=== PATIENT | female | born 1930 | race Caucasian/White ===

== ENCOUNTER 2020-02-25 10:03 | Inpatient (IN) ==
[2020-02-25] MEDS ORDERED: Fluticasone Propionate Nasal 50 MCG/SPRAY BOTTLE NS PRN (18:32)
[2020-02-25] MEDS ORDERED: Nitroglycerin 0.4 MG TAB.SUBL SL PRN (18:32)
[2020-02-25] MEDS: cephALEXin 500 MG CAPSULE PO SCH (20:29)
[2020-02-25] MEDS: rOPINIRole 0.25 MG TABLET PO SCH (20:29)
[2020-02-26 06:45] LABS: Basophils % 0.5 %; Eosinophils # 0.2 K/mcL (0.0-0.6); Hematocrit 30.7 % (35.3-44.9); Hemoglobin 9.4 g/dL (11.5-15.4); Immature Granulocytes % 0.8 % (0-4); Lymphocytes # 0.9 K/mcL (0.6-4.6); Lymphocytes % 12.7 %; Mean Corpuscular HGB Conc 30.6 g/dL (31.6-35.5); Mean Corpuscular Hemoglobin 24.3 pg (28.0-33.3); Mean Corpuscular Volume 79.3 fL (83.0-100.0); Mean Platelet Volume 9.4 fL (9.4-12.4); Monocytes # 0.7 K/mcL (0.0-1.3); Monocytes % 9.8 %; Neutrophils # 5.4 K/mcL (1.6-8.9); Platelet Count 206 K/mcL (140-400); Red Blood Count 3.87 M/mcL (3.82-4.97); Red Cell Distribution Width 25.4 % (11.5-14.5); Segmented Neutrophils % 74.2 %; White Blood Count 7.3 K/mcL (4.3-11.1)
[2020-02-26 07:03] LABS: BUN/Creatinine Ratio 15 (6-26); Blood Urea Nitrogen 10 mg/dL (8-23); Calcium 8.7 mg/dL (8.6-10.3); Carbon Dioxide 28 mEq/L (23-29); Chloride 101 mEq/L (98-107); Glucose 94 mg/dL (70-105); Osmolality,Calculated 281 (280-300); Potassium 3.9 mEq/L (3.5-5.1); Sodium 136 mEq/L (136-145); eGFR For African Americans > 60 (> 60); eGFR For Non-African Americans > 60 (> 60)
[2020-02-26 07:49] LABS: Anisocytosis 1+ (Not Present); Platelet Estimate Normal (Normal); Toxic Granulation Present (Not Present)
[2020-02-26] MEDS: cephALEXin 500 MG CAPSULE PO SCH ×2 (08:46→20:27)
[2020-02-26] MEDS: Aspirin Enteric Coated 81 MG Tablet PO SCH (08:47)
[2020-02-26] MEDS: Lactulose Oral Soln 20 GM/30 ML UDC PO PRN (08:54)
[2020-02-26] MEDS: rOPINIRole 0.25 MG TABLET PO SCH (20:27)
[2020-02-27] MEDS: Acetaminophen 325 MG TABLET PO PRN (01:24)
[2020-02-27] MEDS: Lactulose Oral Soln 20 GM/30 ML UDC PO PRN (08:19)
[2020-02-27] MEDS: cephALEXin 500 MG CAPSULE PO SCH ×2 (08:19→20:26)
[2020-02-27] MEDS: Aspirin Enteric Coated 81 MG Tablet PO SCH (08:19)
[2020-02-27] MEDS: rOPINIRole 0.25 MG TABLET PO SCH (20:27)
[2020-02-28] MEDS: Acetaminophen 325 MG TABLET PO PRN ×3 (00:20→21:05)
[2020-02-28] MEDS: cephALEXin 500 MG CAPSULE PO SCH ×2 (08:53→21:05)
[2020-02-28] MEDS: Aspirin Enteric Coated 81 MG Tablet PO SCH (08:54)
[2020-02-28] MEDS: rOPINIRole 0.25 MG TABLET PO SCH (21:06)
[2020-02-29] MEDS: Aspirin Enteric Coated 81 MG Tablet PO SCH (10:31)
[2020-02-29] MEDS: Acetaminophen 325 MG TABLET PO PRN (10:31)
[2020-02-29 14:59] LABS: Basophils % 0.3 %; Eosinophils # 0.1 K/mcL (0.0-0.6); Eosinophils % 1.3 %; Hematocrit 33.3 % (35.3-44.9); Hemoglobin 9.9 g/dL (11.5-15.4); Immature Granulocytes % 0.6 % (0-4); Lymphocytes # 0.8 K/mcL (0.6-4.6); Lymphocytes % 8.7 %; Mean Corpuscular HGB Conc 29.7 g/dL (31.6-35.5); Mean Corpuscular Hemoglobin 24.6 pg (28.0-33.3); Mean Corpuscular Volume 82.8 fL (83.0-100.0); Monocytes # 0.6 K/mcL (0.0-1.3); Monocytes % 6.8 %; Neutrophils # 7.2 K/mcL (1.6-8.9); Platelet Count 316 K/mcL (140-400); Red Blood Count 4.02 M/mcL (3.82-4.97); Red Cell Distribution Width 26.9 % (11.5-14.5); Segmented Neutrophils % 82.3 %; White Blood Count 8.7 K/mcL (4.3-11.1)
[2020-02-29 15:39] LABS: Anisocytosis 1+ (Not Present); Platelet Estimate Normal (Normal)
[2020-02-29] MEDS: Cefepime HCl 1,000 MG in 0.9 % Sodium Chloride Mini Bag 100 ML IVPB SCH (16:49)
[2020-02-29] MEDS: rOPINIRole 0.25 MG TABLET PO SCH (20:08)
[2020-03-01] MEDS: Cefepime HCl 1,000 MG in 0.9 % Sodium Chloride Mini Bag 100 ML IVPB SCH ×2 (04:15→16:59)
[2020-03-01] MEDS: Aspirin Enteric Coated 81 MG Tablet PO SCH (09:18)
[2020-03-01] MEDS: Acetaminophen 325 MG TABLET PO PRN (09:22)
[2020-03-01] MEDS: rOPINIRole 0.25 MG TABLET PO SCH (20:53)
[2020-03-02] MEDS: Cefepime HCl 1,000 MG in 0.9 % Sodium Chloride Mini Bag 100 ML IVPB SCH ×2 (03:13→14:31)
[2020-03-02] MEDS: Aspirin Enteric Coated 81 MG Tablet PO SCH (09:00)
[2020-03-02] MEDS ORDERED: Alendronate Sodium [Fosamax] 70 MG PO SCH (18:32)
[2020-03-02] MEDS: rOPINIRole 0.25 MG TABLET PO SCH (21:16)
[2020-03-03] MEDS: Cefepime HCl 1,000 MG in 0.9 % Sodium Chloride Mini Bag 100 ML IVPB SCH (02:28)
[2020-03-03] MEDS ORDERED: Bisacodyl 10 MG RECTAL SUPPOSITORY RC ONE (07:37)
[2020-03-03] MEDS: Lactulose Oral Soln 20 GM/30 ML UDC PO PRN ×2 (09:16→21:20)
[2020-03-03] MEDS: Aspirin Enteric Coated 81 MG Tablet PO SCH (09:16)
[2020-03-03] MEDS ORDERED: Ondansetron ODT 4 MG TAB.RAPDIS SL PRN (11:03)
[2020-03-03] MEDS ORDERED: 0.9 % Sodium Chloride 500 ML IV ONE (20:33)
[2020-03-03] MEDS ORDERED: 0.9 % Sodium Chloride 500 ML ONE (20:53)
[2020-03-03 20:58] LABS: Basophils # 0.1 K/mcL (0.0-0.2); Basophils % 0.5 %; Eosinophils # 0.1 K/mcL (0.0-0.6); Eosinophils % 1.3 %; Hematocrit 33.5 % (35.3-44.9); Hemoglobin 10.4 g/dL (11.5-15.4); Immature Granulocytes % 0.7 % (0-4); Lymphocytes # 1.1 K/mcL (0.6-4.6); Lymphocytes % 10.1 %; Mean Corpuscular Hemoglobin 25.4 pg (28.0-33.3); Mean Corpuscular Volume 81.7 fL (83.0-100.0); Mean Platelet Volume 8.2 fL (9.4-12.4); Monocytes # 0.9 K/mcL (0.0-1.3); Monocytes % 7.8 %; Neutrophils # 8.7 K/mcL (1.6-8.9); Platelet Count 422 K/mcL (140-400); Red Cell Distribution Width 26.2 % (11.5-14.5); Segmented Neutrophils % 79.6 %
[2020-03-03 21:10] LABS: Anisocytosis 3+ (Not Present); Hypochromasia Present (Not Present)
[2020-03-03 21:12] LABS: Platelet Estimate Increased (Normal); Poikilocytosis 1+ (Not Present)
[2020-03-03 21:13] LABS: Microcytosis Present (Not Present)
[2020-03-03] MEDS: rOPINIRole 0.25 MG TABLET PO SCH (21:14)
[2020-03-03] MEDS: Doxycycline 100 MG CAPSULE PO SCH (21:14)
[2020-03-03 21:16] LABS: Alanine Aminotransferase 30 Units/L (7-52); Albumin 3.3 g/dL (3.5-5.7); Albumin/Globulin Ratio 0.9 (1.1-2.2); Alkaline Phosphatase 57 Units/L (34-104); Aspartate Amino Transferase 31 Units/L (13-39); BUN/Creatinine Ratio 20 (6-26); Bilirubin,Total 0.3 mg/dL (0.3-1.0); Blood Urea Nitrogen 15 mg/dL (8-23); Calcium 9.1 mg/dL (8.6-10.3); Carbon Dioxide 25 mEq/L (23-29); Chloride 97 mEq/L (98-107); Globulin 3.8 g/dL (2.4-3.5); Glucose 110 mg/dL (70-105); Osmolality,Calculated 271 (280-300); Potassium 4.4 mEq/L (3.5-5.1); Sodium 130 mEq/L (136-145); Total Protein 7.1 g/dL (6.4-8.9); eGFR For African Americans > 60 (> 60); eGFR For Non-African Americans > 60 (> 60)
[2020-03-04] MEDS: Doxycycline 100 MG CAPSULE PO SCH ×2 (08:40→20:53)
[2020-03-04] MEDS: Aspirin Enteric Coated 81 MG Tablet PO SCH (08:41)
[2020-03-04] MEDS: Cefepime HCl 1,000 MG in 0.9 % Sodium Chloride Mini Bag 100 ML IVPB SCH (11:06)
[2020-03-04] MEDS: rOPINIRole 0.25 MG TABLET PO SCH (20:54)
[2020-03-05] MEDS: Lactulose Oral Soln 20 GM/30 ML UDC PO PRN ×2 (05:50→21:05)
[2020-03-05] MEDS: Doxycycline 100 MG CAPSULE PO SCH ×2 (08:35→21:04)
[2020-03-05] MEDS: Aspirin Enteric Coated 81 MG Tablet PO SCH (08:35)
[2020-03-05] MEDS: Acetaminophen 325 MG TABLET PO PRN (13:36)
[2020-03-05] MEDS: rOPINIRole 0.25 MG TABLET PO SCH (21:05)
[2020-03-06] MEDS: Aspirin Enteric Coated 81 MG Tablet PO SCH (09:26)
[2020-03-06] MEDS: Doxycycline 100 MG CAPSULE PO SCH (09:26)
[2020-03-06] MEDS: rOPINIRole 0.25 MG TABLET PO SCH (19:51)
[2020-03-07] MEDS: Lactulose Oral Soln 20 GM/30 ML UDC PO PRN ×2 (08:18→20:42)
[2020-03-07] MEDS: Aspirin Enteric Coated 81 MG Tablet PO SCH (08:20)
[2020-03-07] MEDS: rOPINIRole 0.25 MG TABLET PO SCH (20:42)
[2020-03-08] MEDS: Aspirin Enteric Coated 81 MG Tablet PO SCH (09:53)
[2020-03-08] MEDS: Lactulose Oral Soln 20 GM/30 ML UDC PO PRN (21:26)
[2020-03-08] MEDS: rOPINIRole 0.25 MG TABLET PO SCH (21:26)
[2020-03-09] MEDS: Lactulose Oral Soln 20 GM/30 ML UDC PO PRN (08:17)
[2020-03-09] MEDS: Aspirin Enteric Coated 81 MG Tablet PO SCH (08:17)
[2020-03-09] MEDS: rOPINIRole 0.25 MG TABLET PO SCH (20:24)
[2020-03-10] MEDS: Nystatin POWDER 30 GM BOTTLE TP SCH ×4 (01:12→21:07)
[2020-03-10] MEDS: Aspirin Enteric Coated 81 MG Tablet PO SCH (10:38)
[2020-03-10] MEDS: rOPINIRole 0.25 MG TABLET PO SCH (21:06)
[2020-03-11] MEDS: Aspirin Enteric Coated 81 MG Tablet PO SCH (08:57)
[2020-03-11] MEDS: Acetaminophen 325 MG TABLET PO PRN (08:57)
[2020-03-11] MEDS: Nystatin POWDER 30 GM BOTTLE TP SCH ×3 (09:04→20:27)
[2020-03-11] MEDS: rOPINIRole 0.25 MG TABLET PO SCH (20:27)
[2020-03-12 08:41] LABS: Basophils # 0.1 K/mcL (0.0-0.2); Basophils % 0.9 %; Eosinophils # 0.1 K/mcL (0.0-0.6); Eosinophils % 1.7 %; Immature Granulocytes % 1.3 % (0-4); Lymphocytes # 1.3 K/mcL (0.6-4.6); Lymphocytes % 15.5 %; Mean Corpuscular HGB Conc 31.3 g/dL (31.6-35.5); Mean Corpuscular Hemoglobin 25.9 pg (28.0-33.3); Mean Corpuscular Volume 82.9 fL (83.0-100.0); Mean Platelet Volume 8.1 fL (9.4-12.4); Monocytes # 0.6 K/mcL (0.0-1.3); Monocytes % 7.6 %; Platelet Count 426 K/mcL (140-400); Red Blood Count 3.86 M/mcL (3.82-4.97); Red Cell Distribution Width 25.9 % (11.5-14.5); White Blood Count 8.2 K/mcL (4.3-11.1)
[2020-03-12 09:16] LABS: BUN/Creatinine Ratio 20 (6-26); Blood Urea Nitrogen 18 mg/dL (8-23); Calcium 8.9 mg/dL (8.6-10.3); Carbon Dioxide 28 mEq/L (23-29); Chloride 94 mEq/L (98-107); Glucose 95 mg/dL (70-105); Osmolality,Calculated 272 (280-300); Potassium 4.7 mEq/L (3.5-5.1); Sodium 130 mEq/L (136-145); eGFR For African Americans > 60 (> 60); eGFR For Non-African Americans 59 (> 60)
[2020-03-12] MEDS: Aspirin Enteric Coated 81 MG Tablet PO SCH (09:44)
[2020-03-12] MEDS: Nystatin POWDER 30 GM BOTTLE TP SCH ×3 (09:45→20:15)
[2020-03-12 10:11] LABS: Anisocytosis 2+ (Not Present)
[2020-03-12] MEDS: rOPINIRole 0.25 MG TABLET PO SCH (20:15)
[2020-03-13] MEDS: Aspirin Enteric Coated 81 MG Tablet PO SCH (09:17)
[2020-03-13] MEDS: Nystatin POWDER 30 GM BOTTLE TP SCH ×3 (09:18→20:51)
[2020-03-13] MEDS: Lactulose Oral Soln 20 GM/30 ML UDC PO PRN (14:06)
[2020-03-13] MEDS: rOPINIRole 0.25 MG TABLET PO SCH (20:51)
[2020-03-14] MEDS: Nystatin POWDER 30 GM BOTTLE TP SCH ×3 (08:28→21:06)
[2020-03-14] MEDS: Acetaminophen 325 MG TABLET PO PRN (08:28)
[2020-03-14] MEDS: Aspirin Enteric Coated 81 MG Tablet PO SCH (08:28)
[2020-03-14] MEDS: rOPINIRole 0.25 MG TABLET PO SCH (21:04)
[2020-03-15] MEDS: Aspirin Enteric Coated 81 MG Tablet PO SCH (07:26)
[2020-03-15] MEDS: Nystatin POWDER 30 GM BOTTLE TP SCH ×2 (07:27→15:36)
[2020-03-15 07:40] VITALS: BP 99/58
[2020-03-26] MEDS ORDERED: Cyanocobalamin (B-12) 1,000 MCG/ML VIAL IM SCH (09:00)
== END 2020-03-15 19:05 | disposition home health service (06) | DRG 690 ==
LOC: INPPIK 19:44
PROVIDERS: ADMIT Family Medicine; ATTEND Family Medicine

== ENCOUNTER 2020-03-17 00:14 | Observation (INO) ==
[2020-03-17] MEDS ORDERED: Ondansetron ODT 4 MG TAB.RAPDIS SL PRN (02:21)
[2020-03-17] MEDS ORDERED: Naloxone 0.4 MG/ML INJ IVP PRN (02:21)
[2020-03-17] MEDS ORDERED: Ipratropium/Albuterol Neb 3 ML IH PRN (02:24)
[2020-03-17] MEDS ORDERED: 0.9 % Sodium Chloride 1,000 ML IVC SCH (02:30)
[2020-03-17] MEDS: Acetaminophen 325 MG TABLET PO PRN ×3 (03:06→23:08)
[2020-03-17] MEDS ORDERED: Fluticasone Propionate Nasal 50 MCG/SPRAY BOTTLE NS PRN (07:40)
[2020-03-17] MEDS ORDERED: Nitroglycerin 0.4 MG TAB.SUBL SL PRN (07:40)
[2020-03-17] MEDS ORDERED: Lactulose Oral Soln 20 GM/30 ML UDC PO PRN (07:40)
[2020-03-17] MEDS: Aspirin Enteric Coated 81 MG Tablet PO SCH (08:18)
[2020-03-17 08:24] LABS: Hematocrit 29.3 % (35.3-44.9); Hemoglobin 9.4 g/dL (11.5-15.4); Mean Corpuscular HGB Conc 32.1 g/dL (31.6-35.5); Mean Corpuscular Hemoglobin 26.7 pg (28.0-33.3); Mean Corpuscular Volume 83.2 fL (83.0-100.0); Mean Platelet Volume 8.2 fL (9.4-12.4); Platelet Count 330 K/mcL (140-400); Red Blood Count 3.52 M/mcL (3.82-4.97); Red Cell Distribution Width 25.7 % (11.5-14.5); White Blood Count 8.8 K/mcL (4.3-11.1)
[2020-03-17 08:32] LABS: INR 1.2; Prothrombin Time 14.3 Seconds (9.4-12.1)
[2020-03-17 08:44] LABS: BUN/Creatinine Ratio 15 (6-26); Blood Urea Nitrogen 10 mg/dL (8-23); Calcium 8.4 mg/dL (8.6-10.3); Carbon Dioxide 25 mEq/L (23-29); Chloride 98 mEq/L (98-107); Glucose 99 mg/dL (70-105); Magnesium 1.8 mg/dL (1.6-2.6); Osmolality,Calculated 271 (280-300); Phosphorous 3.4 mg/dL (2.7-4.5); Potassium 4.2 mEq/L (3.5-5.1); Sodium 131 mEq/L (136-145); eGFR For African Americans > 60 (> 60); eGFR For Non-African Americans > 60 (> 60)
[2020-03-17 08:58] LABS: Thyroid Stimulating Hormone 17.726 mcIU/mL (0.340-5.600)
[2020-03-17 13:45] LABS: Ferritin 361 ng/mL (10-120)
[2020-03-17 13:49] LABS: Folate 5.5 ng/mL (3.0-16.0)
[2020-03-17] MEDS: predniSONE 20 MG TABLET PO SCH (18:45)
[2020-03-17] MEDS: Colchicine 0.6 MG TABLET PO SCH (20:54)
[2020-03-17] MEDS ORDERED: rOPINIRole 0.25 MG TABLET PO SCH (21:00)
[2020-03-17] MEDS ORDERED: cefTRIAXone 1,000 MG in Water for inj. (sterile) 10 ML IVP SCH (21:00)
[2020-03-18 06:40] VITALS: BP 112/69
[2020-03-18] MEDS: Aspirin Enteric Coated 81 MG Tablet PO SCH (08:42)
[2020-03-18] MEDS: predniSONE 20 MG TABLET PO SCH (08:43)
[2020-03-18] MEDS: Colchicine 0.6 MG TABLET PO SCH (08:44)
[2020-03-20] MEDS ORDERED: predniSONE 10 MG TABLET PO SCH (09:00)
[2020-03-23] MEDS ORDERED: NON-FORMULARY MEDICATION 1 EACH EACH (Alendronate Sodium [Fosamax] 70 MG) PO SCH (07:40)
[2020-03-25] MEDS ORDERED: Cyanocobalamin (B-12) 1,000 MCG/ML VIAL IM SCH (09:00)
== END 2020-03-18 13:41 | disposition other institution (70) ==
LOC: INPPIK → SUATTDRO 02:14 → INPPIK 15:24
PROVIDERS: ADMIT Student in an Organized Health Care Education/Training Program; ATTEND Family Medicine

== ENCOUNTER 2020-03-18 12:24 | Inpatient (IN) ==
[2020-03-18] MEDS ORDERED: Fluticasone Propionate Nasal 50 MCG/SPRAY BOTTLE NS PRN (12:34)
[2020-03-18] MEDS ORDERED: Nitroglycerin 0.4 MG TAB.SUBL SL PRN (12:34)
[2020-03-18] MEDS ORDERED: Naloxone 0.4 MG/ML INJ IVP PRN (12:47)
[2020-03-18] MEDS ORDERED: Ondansetron ODT 4 MG TAB.RAPDIS SL PRN (12:48)
[2020-03-18] MEDS ORDERED: cefTRIAXone 1,000 MG in Water for inj. (sterile) 10 ML IVP SCH (21:00)
[2020-03-18] MEDS: rOPINIRole 0.25 MG TABLET PO SCH (21:20)
[2020-03-18] MEDS: Colchicine 0.6 MG TABLET PO SCH (21:21)
[2020-03-19 07:43] LABS: Hematocrit 28.6 % (35.3-44.9); Hemoglobin 9.1 g/dL (11.5-15.4); Mean Corpuscular HGB Conc 31.8 g/dL (31.6-35.5); Mean Corpuscular Hemoglobin 26.5 pg (28.0-33.3); Mean Corpuscular Volume 83.4 fL (83.0-100.0); Mean Platelet Volume 7.9 fL (9.4-12.4); Platelet Count 330 K/mcL (140-400); Red Blood Count 3.43 M/mcL (3.82-4.97); Red Cell Distribution Width 25.2 % (11.5-14.5); White Blood Count 7.8 K/mcL (4.3-11.1)
[2020-03-19 08:06] LABS: BUN/Creatinine Ratio 21 (6-26); Blood Urea Nitrogen 15 mg/dL (8-23); Calcium 8.2 mg/dL (8.6-10.3); Carbon Dioxide 23 mEq/L (23-29); Chloride 100 mEq/L (98-107); Glucose 87 mg/dL (70-105); Osmolality,Calculated 272 (280-300); Sodium 131 mEq/L (136-145); eGFR For African Americans > 60 (> 60); eGFR For Non-African Americans > 60 (> 60)
[2020-03-19] MEDS: predniSONE 20 MG TABLET PO SCH (08:41)
[2020-03-19] MEDS: Aspirin Enteric Coated 81 MG Tablet PO SCH (08:41)
[2020-03-19] MEDS: Colchicine 0.6 MG TABLET PO SCH ×2 (08:41→20:26)
[2020-03-19] MEDS: rOPINIRole 0.25 MG TABLET PO SCH (20:27)
[2020-03-20] MEDS: predniSONE 10 MG TABLET PO SCH (08:42)
[2020-03-20] MEDS: Colchicine 0.6 MG TABLET PO SCH (08:42)
[2020-03-20] MEDS: predniSONE 20 MG TABLET PO SCH (08:43)
[2020-03-20] MEDS: Aspirin Enteric Coated 81 MG Tablet PO SCH (08:43)
[2020-03-20] MEDS: rOPINIRole 0.25 MG TABLET PO SCH (20:16)
[2020-03-21] MEDS: Aspirin Enteric Coated 81 MG Tablet PO SCH (09:45)
[2020-03-21] MEDS: predniSONE 10 MG TABLET PO SCH (09:45)
[2020-03-21] MEDS: predniSONE 20 MG TABLET PO SCH (09:45)
[2020-03-21] MEDS: rOPINIRole 0.25 MG TABLET PO SCH (20:42)
[2020-03-22] MEDS: Aspirin Enteric Coated 81 MG Tablet PO SCH (09:22)
[2020-03-22] MEDS: predniSONE 20 MG TABLET PO SCH (09:23)
[2020-03-22] MEDS: predniSONE 10 MG TABLET PO SCH (09:23)
[2020-03-22] MEDS: rOPINIRole 0.25 MG TABLET PO SCH (19:55)
[2020-03-23] MEDS: Aspirin Enteric Coated 81 MG Tablet PO SCH (08:19)
[2020-03-23] MEDS: Nystatin POWDER 30 GM BOTTLE TP SCH ×2 (12:01→20:05)
[2020-03-23] MEDS: rOPINIRole 0.25 MG TABLET PO SCH (20:05)
[2020-03-24] MEDS: Nystatin POWDER 30 GM BOTTLE TP SCH ×2 (08:04→20:14)
[2020-03-24] MEDS: Aspirin Enteric Coated 81 MG Tablet PO SCH (08:04)
[2020-03-24] MEDS: rOPINIRole 0.25 MG TABLET PO SCH (20:12)
[2020-03-25] MEDS ORDERED: Cyanocobalamin (B-12) 1,000 MCG/ML VIAL IM SCH (09:00)
[2020-03-25] MEDS: Aspirin Enteric Coated 81 MG Tablet PO SCH (09:14)
[2020-03-25] MEDS: Nystatin POWDER 30 GM BOTTLE TP SCH ×2 (09:20→20:25)
[2020-03-25] MEDS: rOPINIRole 0.25 MG TABLET PO SCH (20:24)
[2020-03-26] MEDS: Lactulose Oral Soln 20 GM/30 ML UDC PO PRN (05:40)
[2020-03-26] MEDS: Aspirin Enteric Coated 81 MG Tablet PO SCH (07:55)
[2020-03-26] MEDS: rOPINIRole 0.25 MG TABLET PO SCH (21:06)
[2020-03-26] MEDS: Nystatin POWDER 30 GM BOTTLE TP SCH (21:07)
[2020-03-27] MEDS: Aspirin Enteric Coated 81 MG Tablet PO SCH (08:43)
[2020-03-27] MEDS: Nystatin POWDER 30 GM BOTTLE TP SCH ×3 (08:46→21:07)
[2020-03-27] MEDS: Acetaminophen 325 MG TABLET PO PRN (12:32)
[2020-03-27 14:23] LABS: Adenovirus Not Detected (Not Detect); Bordetella Pertussis Not Detected (Not Detect); Chlamydophila pneumoniae Not Detected (Not Detect); Coronavirus 229E Not Detected (Not Detect); Coronavirus HKU1 Not Detected (Not Detect); Coronavirus NL63 Not Detected (Not Detect); Coronavirus OC43 Not Detected (Not Detect); Human Metapneumovirus Not Detected (Not Detect); Human Rhinovirus/Enterovirus Not Detected (Not Detect); Influenza A Subtype 2009 H1 Not Detected (Not Detect); Influenza B Not Detected (Not Detect); Mycoplasma pneumoniae Not Detected (Not Detect); Parainfluenza Virus 1 Not Detected (Not Detect); Parainfluenza Virus 2 Not Detected (Not Detect); Parainfluenza Virus 3 Not Detected (Not Detect); Parainfluenza Virus 4 Not Detected (Not Detect); Respiratory Syncytial Virus Not Detected (Not Detect); SARS-CoV-2 Not Detected (Not Detect)
[2020-03-27] MEDS: Lactulose Oral Soln 20 GM/30 ML UDC PO PRN (17:34)
[2020-03-27] MEDS: rOPINIRole 0.25 MG TABLET PO SCH (21:02)
[2020-03-28] MEDS: Nystatin POWDER 30 GM BOTTLE TP SCH ×2 (09:31→20:06)
[2020-03-28] MEDS: Aspirin Enteric Coated 81 MG Tablet PO SCH (09:31)
[2020-03-28] MEDS: Lactulose Oral Soln 20 GM/30 ML UDC PO PRN (09:31)
[2020-03-28] MEDS: rOPINIRole 0.25 MG TABLET PO SCH (20:05)
[2020-03-29] MEDS: Aspirin Enteric Coated 81 MG Tablet PO SCH (08:12)
[2020-03-29] MEDS: Nystatin POWDER 30 GM BOTTLE TP SCH ×2 (08:12→20:09)
[2020-03-29] MEDS: rOPINIRole 0.25 MG TABLET PO SCH (20:08)
[2020-03-30] MEDS: Aspirin Enteric Coated 81 MG Tablet PO SCH (07:56)
[2020-03-30] MEDS: Nystatin POWDER 30 GM BOTTLE TP SCH ×2 (07:57→19:52)
[2020-03-30 09:36] LABS: Basophils % 1.1 %; Eosinophils # 0.1 K/mcL (0.0-0.6); Hematocrit 32.9 % (35.3-44.9); Hemoglobin 10.8 g/dL (11.5-15.4); Immature Granulocytes % 1.4 % (0-4); Lymphocytes # 1.2 K/mcL (0.6-4.6); Lymphocytes % 34.4 %; Mean Corpuscular HGB Conc 32.8 g/dL (31.6-35.5); Mean Corpuscular Hemoglobin 27.8 pg (28.0-33.3); Mean Corpuscular Volume 84.8 fL (83.0-100.0); Mean Platelet Volume 8.8 fL (9.4-12.4); Monocytes # 0.4 K/mcL (0.0-1.3); Monocytes % 12.6 %; Neutrophils # 1.6 K/mcL (1.6-8.9); Platelet Count 194 K/mcL (140-400); Red Blood Count 3.88 M/mcL (3.82-4.97); Segmented Neutrophils % 46.5 %; White Blood Count 3.5 K/mcL (4.3-11.1)
[2020-03-30 09:48] LABS: BUN/Creatinine Ratio 22 (6-26); Blood Urea Nitrogen 17 mg/dL (8-23); Calcium 8.6 mg/dL (8.6-10.3); Carbon Dioxide 28 mEq/L (23-29); Chloride 92 mEq/L (98-107); Glucose 108 mg/dL (70-105); Osmolality,Calculated 268 (280-300); Potassium 4.4 mEq/L (3.5-5.1); Sodium 128 mEq/L (136-145); eGFR For African Americans > 60 (> 60); eGFR For Non-African Americans > 60 (> 60)
[2020-03-30] MEDS: rOPINIRole 0.25 MG TABLET PO SCH (19:50)
[2020-03-31] MEDS: Aspirin Enteric Coated 81 MG Tablet PO SCH (10:52)
[2020-03-31] MEDS: Nystatin POWDER 30 GM BOTTLE TP SCH ×2 (14:50→20:16)
[2020-03-31] MEDS: rOPINIRole 0.25 MG TABLET PO SCH (20:13)
[2020-04-01] MEDS: Aspirin Enteric Coated 81 MG Tablet PO SCH (08:00)
[2020-04-01] MEDS: Nystatin POWDER 30 GM BOTTLE TP SCH ×2 (08:01→19:37)
[2020-04-01] MEDS: rOPINIRole 0.25 MG TABLET PO SCH (19:33)
[2020-04-02] MEDS: Aspirin Enteric Coated 81 MG Tablet PO SCH (09:57)
[2020-04-02] MEDS: Nystatin POWDER 30 GM BOTTLE TP SCH (10:03)
[2020-04-02] MEDS: rOPINIRole 0.25 MG TABLET PO SCH (21:11)
[2020-04-03] MEDS: Nystatin POWDER 30 GM BOTTLE TP SCH ×3 (06:02→20:39)
[2020-04-03] MEDS: Aspirin Enteric Coated 81 MG Tablet PO SCH (08:32)
[2020-04-03] MEDS: Lactulose Oral Soln 20 GM/30 ML UDC PO PRN (17:19)
[2020-04-03] MEDS: rOPINIRole 0.25 MG TABLET PO SCH (20:37)
[2020-04-04] MEDS: Nystatin POWDER 30 GM BOTTLE TP SCH ×2 (08:46→20:47)
[2020-04-04] MEDS: Aspirin Enteric Coated 81 MG Tablet PO SCH (08:46)
[2020-04-04] MEDS: rOPINIRole 0.25 MG TABLET PO SCH (20:46)
[2020-04-05] MEDS: Lactulose Oral Soln 20 GM/30 ML UDC PO PRN (09:39)
[2020-04-05] MEDS: Aspirin Enteric Coated 81 MG Tablet PO SCH (09:40)
[2020-04-05] MEDS: Acetaminophen 325 MG TABLET PO PRN (09:40)
[2020-04-05] MEDS: Nystatin POWDER 30 GM BOTTLE TP SCH ×2 (09:53→21:25)
[2020-04-05] MEDS: rOPINIRole 0.25 MG TABLET PO SCH (19:39)
[2020-04-06] MEDS: Aspirin Enteric Coated 81 MG Tablet PO SCH (09:18)
[2020-04-06] MEDS: Nystatin POWDER 30 GM BOTTLE TP SCH ×2 (09:20→19:31)
[2020-04-06] MEDS: rOPINIRole 0.25 MG TABLET PO SCH (19:31)
[2020-04-06] MEDS ORDERED: 0.9 % Sodium Chloride 1,000 ML IVC ONE (21:51)
[2020-04-07] MEDS: Nystatin POWDER 30 GM BOTTLE TP SCH ×2 (08:21→19:39)
[2020-04-07] MEDS: Aspirin Enteric Coated 81 MG Tablet PO SCH (08:21)
[2020-04-07] MEDS: rOPINIRole 0.25 MG TABLET PO SCH (19:39)
[2020-04-08] MEDS: Lactulose Oral Soln 20 GM/30 ML UDC PO PRN ×2 (07:43→21:04)
[2020-04-08] MEDS: Acetaminophen 325 MG TABLET PO PRN ×2 (07:44→21:03)
[2020-04-08] MEDS: Aspirin Enteric Coated 81 MG Tablet PO SCH (07:44)
[2020-04-08] MEDS: Nystatin POWDER 30 GM BOTTLE TP SCH ×2 (07:47→20:51)
[2020-04-08] MEDS: rOPINIRole 0.25 MG TABLET PO SCH (20:50)
[2020-04-09] MEDS: Aspirin Enteric Coated 81 MG Tablet PO SCH (09:03)
[2020-04-09] MEDS: Lactulose Oral Soln 20 GM/30 ML UDC PO PRN (09:03)
[2020-04-09] MEDS: Nystatin POWDER 30 GM BOTTLE TP SCH ×2 (09:04→19:44)
[2020-04-09] MEDS: rOPINIRole 0.25 MG TABLET PO SCH (19:39)
[2020-04-10 07:14] VITALS: BP 96/59
[2020-04-10] MEDS: Aspirin Enteric Coated 81 MG Tablet PO SCH (08:18)
[2020-04-10] MEDS: Nystatin POWDER 30 GM BOTTLE TP SCH (08:19)
[2020-04-10] MEDS: Lactulose Oral Soln 20 GM/30 ML UDC PO PRN (08:21)
== END 2020-04-10 19:30 | DRG 689 ==
LOC: INPPIK 13:44
PROVIDERS: ADMIT Family Medicine; ATTEND Family Medicine